=== PATIENT | female | born 1980 | race Caucasian/White ===

== ENCOUNTER 2020-12-23 15:15 | Outpatient (CLI) | payer OTHER, SELFPAY ==
--- NOTE | 2020-12-23 15:22 | XR_ITS ---
WS: [id number] LUMBAR SPINE FLEXION AND EXTENSION TECHNIQUE: 3 views of the lumbar spine: Lateral neutral, flexion, and extension views. CLINICAL INFORMATION: LUMBAR DEGENERATIVE DISC DISEASE COMPARISON: None. FINDINGS: Normal lumbar alignment on the neutral view. No instability on the flexion and extension views. Mild disc space narrowing L5-S1. Mild facet arthropathy L5-S1. Cholecystectomy clips. XR/XR lumbar spine f/e only [id number] IMPRESSION: No instability on flexion-extension
== END 2020-12-23 15:16 | disposition home or self-care (01) ==
PROVIDERS: Visit Provider Family Medicine
DX: M51.36 Other intervertebral disc degeneration, lumbar region (principal)
CPT/HCPCS: 72120